=== PATIENT | female | born 1970 | race Caucasian/White ===

== ENCOUNTER 2025-08-14 20:40 | Emergency (ER) | payer OTHER, SELFPAY ==
--- OUTSIDE RECORDS SUMMARY | 2025-02-13 06:00 | XMS_ITS ---
Author Organization [facility] [place] [facility] Address [address] [place] [address] Care Team Providers Care Casing Splitter Name Role Phone Phylicia Locke Primary Care Provider Unavaila ble Provider, ASC Unavailable [phone] Encounters Encounter Location Date Provider Diagnosis [facility] [address] [place] [address] 02/13/2025 ASC Provider Plan Of Treatment No Information Progress Notes * Fiordaliza ALVAREZDOB:1970 (54 yo F)Acc No.[id number]:02/13/2025 UNLOCKED PROGRESS NOTE [facility] Surgery Patient: Fiordaliza PRESLEY :?ASC ProviderDOB:1970???Age:54 Y???Sex: FemaleDate:02/13/2025Phone:[phone]:[address], [address], [place], [place]-[address]Pcp:Phylicia Pérez In:09:52 AM EST Subjective: * Chief Complaints: * * Medical History: Objective: * Vitals: Assessment: Plan: * Treatment: * * Electronic signature of ASC Provider on 08/15/2025 at 01:22 AM ESTSign off status: PendingVisit Status:?ARR (Check-In) * Provider: A IA Provider Date: 0 02/13/2025 Generated for Printing/Faxing/eTransmitting on:?08/15/2025 01:22 AM EST
[2025-08-14 20:53] VITALS: BP 138/82; PULSE 100; TEMP 36.9; O2SAT 95; BMI 35.0
[2025-08-14 21:27] LABS: SARS-CoV-2 Ag NEGATIVE (NEGATIVE)
[2025-08-15 00:56] VITALS: BP 140/88; PULSE 87; TEMP 36.9; O2SAT 98
--- NOTE | 2025-08-15 01:00 | ED.GENADUL1 ---
HPI HPI - General Adult General Chief complaint: Fever Stated complaint: Fever, fatigue, flu-like symptoms Time Seen by Provider: 08/15/25 00:57 Source: patient Mode of arrival: walk-in Limitations: no limitations History of Present Illness HPI narrative: ill past 2-3 days with body aches, fever up to 103 yesterday . Dry cough and mild shortness of breath. No GI symptoms or rash Related Data Allergies Allergy/AdvReac Type Severity Reaction Status Date / Time No Known Drug Allergies Allergy Verified 08/14/25 21:00 Review of Systems ROS Status of ROS 10 or more systems reviewed and unremarkable except as noted in history and below PFSH PFSH Social History Little interest or pleasure in doing things: not at all Feeling down, depressed, or hopeless: not at all Exam Constitutional Vital Signs, click to edit/add: Last Vital Signs Temp 98.4 F 08/15/25 00:56 Pulse 87 08/15/25 00:56 Resp 18 08/15/25 00:56 BP 140/88 08/15/25 00:56 Pulse Ox 98 08/15/25 00:56 O2 Del Method Room Air 08/15/25 00:56 Common normals: no apparent distress, average body habitus, oriented x3, no limitations, healthy appearing, alert and well nourished [facility] Common normals: normocephalic and head/scalp atraumatic Eye Common normals: EOMs intact bilaterally and conjunctivae normal Respiratory Common normals: normal respiratory effort, no retractions, no use of accessory muscles and clear to auscultation bilaterally Cardio Common normals: regular rate, regular rhythm, S1 normal heart sound and S2 normal heart sound GI Common normals: Normal to inspection, nondistended, normoactive bowel sounds present, soft to palpation and non-tender Extremity Common normals: normal to inspection Neuro Common normals: oriented x3, CN's II-XII intact bilaterally, moves all extremities and no focal motor deficits Psych Appearance: grossly normal Course Vital Signs Vital signs: Vital Signs Temperature 98.4 F 08/14/25 20:53 Pulse Rate 100 H 08/14/25 20:53 Respiratory Rate 15 08/14/25 20:53 Blood Pressure 138/82 08/14/25 20:53 Pulse Oximetry 95 08/14/25 20:53 Oxygen Delivery Method Room Air 08/14/25 20:53 Temperature 98.4 F 08/15/25 00:56 Pulse Rate 87 08/15/25 00:56 Respiratory Rate 18 08/15/25 00:56 Blood Pressure 140/88 08/15/25 00:56 Pulse Oximetry 98 08/15/25 00:56 Oxygen Delivery Method Room Air 08/15/25 00:56 Medical Decision Making MDM Narrative Medical decision making narrative: patient presents with body aches and dry cough. Exam neg. cxray per my preliminary review unremarkable. Influenza positive and UA positive as well. Patient advised of working diagnosis of influenza and UTI. Given prescriptiom of bactrim ds and discharged in stable condition Lab Data Labs: Lab Results 08/14/25 08/15/25 08/15/25 Range/Units 21:03 01:15 01:17 WBC 3.2 L (4.0-11.0) 10^3/uL RBC 4.54 (4.20-5.40) 10^6/uL Hgb 13.3 (12.0-16.0) g/dL Hct 41.7 (36.0-48.0) % MCV 91.9 (81.0-99.0) fL MCH 29.3 (26.7-34.0) pg MCHC 31.9 (29.9-35.2) g/dL RDW 12.5 (11.0-15.0) % Plt Count 256 (150-450) 10^3/uL MPV 9.1 L (9.5-13.5) fL Neut % (Auto) 50.6 (43.0-75.0) % Lymph % (Auto) 34.6 (20.5-60.0) % [place] % (Auto) 14.2 H (1.7-12.0) % Eos % (Auto) 0.0 L (0.9-7.0) % Baso % (Auto) 0.6 (0.2-2.0) % Neut # (Auto) 1.6 (1.4-6.5) 10^3/uL Lymph # (Auto) 1.1 L (1.2-3.8) 10^3/uL [place] # (Auto) 0.5 (0.3-0.8) 10^3/uL Eos # (Auto) 0.0 (0.0-0.7) 10^3/uL Baso # (Auto) 0.0 (0.0-0.1) 10^3/uL Abs Immat Gran (auto) 0.00 (0.00-0.03) 10^3/uL Imm/Tot Granulo (auto) 0.0 (0.0-0.5) % Sodium 134 L (136-145) mmol/L Potassium 3.9 (3.5-5.1) mmol/L Chloride 99 (98-107) mmol/L Carbon Dioxide 31.5 (21.0-32.0) mmol/L Anion Gap 7.4 BUN 9.0 (7.0-18.0) mg/dL Creatinine 0.72 (0.55-1.02) mg/dL Est GFR ( Amer) >60 (>=60 mL/min/1.73m^2) Est GFR (Non-Af Amer) >60 (>=60 mL/min/1.73m^2) BUN/Creatinine Ratio 12.5 Glucose 123 H (74-106) mg/dL Calcium 9.6 (8.5-10.1) mg/dL Urine Color Yellow (YELLOW) Urine Clarity Clear (CLEAR) Urine pH 6.0 (5.0-9.0) Ur Specific Clayton >=1.030 A (1.005-1.025) Urine Protein Trace (NEG/TRACE) mg/dL Urine Glucose (UA) Negative (NEGATIVE) mg/dL Urine Ketones Trace A (NEGATIVE) mg/dL Urine Occult Blood Negative (NEGATIVE) Urine Nitrite Negative (NEGATIVE) Urine Bilirubin Negative (NEGATIVE) Urine Urobilinogen 0.2 (0.2-1.0) EU/dL Ur Leukocyte Esterase Negative (NEGATIVE) Urine RBC None seen (0-2) #/HPF Urine WBC 2-5 A (NONE SEEN) #/HPF Ur Squamous Epith Cells Rare (NONE/RARE) #/LPF Urine Crystals Seen A (None Seen) #/HPF Amorphous Sediment Rare Urine Bacteria Small A (NONE SEEN) #/HPF Urine Casts None seen (NONE SEEN) #/LPF Urine Mucus Moderate A (NONE SEEN) Ur [place] Indicated[place] [place] Type A Ag Negative Influenza Type B Ag Positive A SARS-CoV-2 Ag (CV2AG) Negative (NEGATIVE) Streptococcus Screen Negative Discharge Plan Discharge Chief Complaint: Fever Clinical Impression: Influenza, UTI (urinary tract infection) Patient Disposition: Home, Self-Care Print Language: Colombian Instructions: Urinary Tract Infection in Women (ED), Influenza (ED) Additional Instructions: drink plenty of fluids and follow up with your doctor later this week Referrals: Physician,Non-Staff, MD [Primary Care Provider] - 1 week
--- NOTE | 2025-08-15 01:02 | XR_ITS ---
[facility] [place] [id number] Patient Name: SAKINA CUENCA MRN: [id number] date: 1970 Sex: F Assigned Patient Location: ED.MAIN Current Patient Location: Accession/Order Number: [id number] Exam Date: 08/15/2025 01:15 Report Date: 08/15/2025 09:29 At the request of: ANTIONETTE MALAGON MD Procedure: XR chest 1V PORTABLE AP ERECT CHEST 1110 hours CLINICAL HISTORY: cough and flulike symptoms COMPARISON: None Evaluation is slightly limited by large body habitus. The heart is within normal limits. There is no vascular congestion. The lungs, as visualized, are clear. There is no effusion or pneumothorax. The osseous structures are intact. There are small endplate spurs. XR/XR chest 1V IMPRESSION: SLIGHTLY LIMITED STUDY, WITHOUT DEFINITE ACUTE FINDINGS . Impression dictated by: Ilda Rothman M.D. 08/15/2025 9:29 AM Dictation Location: [place] [address] Electronically authenticated by: [id number] Y Date: 08/15/2025 09:29
[2025-08-15 01:21] LABS: Hematocrit 41.7 % (36.0-48.0); Hemoglobin 13.3 g/dL (12.0-16.0); Immature Granulocytes Abs Auto 0.00 10^3/uL (0.00-0.03); Immature Granulocytes Pct Auto 0.0 % (0.0-0.5); Lymphocytes Absolute Auto 1.1 10^3/uL (1.2-3.8); Mean Corpuscular HGB Conc 31.9 g/dL (29.9-35.2); Mean Corpuscular Hemoglobin 29.3 pg (26.7-34.0); Mean Corpuscular Volume 91.9 fL (81.0-99.0); Platelet Count 256 10^3/uL (150-450); Red Blood Count 4.54 10^6/uL (4.20-5.40); White Blood Count 3.2 10^3/uL (4.0-11.0)
[2025-08-15 01:22] LABS: Glucose Urine UA NEGATIVE (NEGATIVE)
--- OUTSIDE RECORDS SUMMARY | 2025-08-15 01:22 | XMS_ITS | Clinical Summary ---
Author Organization [facility] Address [address] [place] [address] Care Team Providers Care Mechanical And Auto Body Car Checker Name Role Phone Chucky Phylicia JOSÉ LUIS Unavailable [phone] Andreas Frye DO Unavailable [phone] Jose Elias Keita MD Primary Care Provider [phone] Allergies No known active allergies Medications MedicationSigDispense QuantityRefillsLast FilledStart DateEnd DateStatus spironolactone (Aldactone) 50 MG tablet Take 50 mg by mouth Daily 1 tabletActive desogestrel-ethinyl estradiol (Apri) 0.15-30 MG-MCG tablet Take 1 tablet by mouth DailyActive Rimegepant Sulfate (Nurtec) 75 MG tablet dispersible Indications:Chronic migraine without aura without status migrainosus, not intractable,Acephalgic migraineTake 1 tablet by mouth as needed at the onset of migraine. Place on tongue and allow to dissolve. Take no more than 1 dose in 24 hours. 8 tablet 5Active amitriptyline (Elavil) 25 MG tablet Indications:Acephalgic migraineTake 1 tablet (25 mg) by mouth Daily 30 tablet 5Active Active Problems ProblemNoted DateDiagnosed ScftMwsemhpfyca52/28/2024hronic migraine without aura without status migrainosus, not krcfwzqatbu86/28/6164Ezrdknt22/28/2024 Family History Medical HistoryRelationNameCommentsCancerOtherHeart attackOtherStrokeOther RelationNameStatusCommentsOther Social History Tobacco UseTypesPacks/DayYears UsedDateSmoking Tobacco: NeverSmokeless Tobacco: Never Tobacco Cessation:Counseling Given: Not Answered Alcohol UseStandard Drinks/WeekCommentsNever0 (1 standard drink = 0.6 oz pure alcohol)caffeineCommentsUnknownSex and Gender InformationValueDate RecordedSex Assigned at JjpyzOoipgl37/23/2024 8:38 AM EDTLegal SexFemale 11/11/2022 8:26 PM EDTGender ZejvbrnyXbpcwc72/23/2024 8:38 AM EDTSexual ZlgqdimxwucMxawhhxu22/23/2024 8:38 AM EDT Last Filed Vital Signs Vital SignReadingTime TakenCommentsBlood Xigidosd570/7901/16/2025 8:14 AM EDT Ehynj817101/16/2025 8:14 AM EDTTemperature--Respiratory Nkze796001/18/2024 10:49 AM EDTOxygen Saturation--Inhaled Oxygen Concentration--Mmxull591 kg (237 lb) 01/16/2025 8:14 AM LCXTrqqbu078.7 cm (5' 8 )01/16/2025 8:14 AM EDTBody Mass Index36.04001/16/2025 8:14 AM EDT Plan of Treatment Not on file Insurance * Guarantor: Fiordaliza AlvarezAccount TypeRelation to PatientDate of BirthPhone Billing AddressPersonal/LiiwwuBosz02/14/1971 [phone] [address] Care Teams Team MemberRelationshipSpecialtyStart DateEnd Date Jose Elias Keita MD [address] [place] [address] PCP - GeneralInternal Vzfuavny70/11/24 Phylicia Locke CRNP [address] [facility] [place] [address] Referring PhysicianNurse Practitioner12/28/23 Andreas Frye DO [address] [place] [address] Referring XneazycyjYplflvmkp17/8/24
--- OUTSIDE RECORDS SUMMARY | 2025-08-15 01:22 | XMS_ITS | Patient Health Record ---
Author Organization [facility] [place] Address [address] [place] [address] Care Team Providers Care Utilization Reviewer Name Role Phone Phylicia Locke Primary Care Provider Bunny [place] Unavailable [phone] Provider, LIZ Unavailable [phone] Allergies No Known Allergies Results Component Value Reference Range Notes Colonoscopy* Reviewed date:02/15/2025 05:50:31 AM Interpretation: Performing Lab: Notes/Report: Reason For Referral No Information Medications Medication SIG (Take, Route, Frequency, Duration) Notes Start Date End Date Status Amitriptyline HCl 25 MG 1 tablet at bedtime Oral ly Once a day ActiveNurtec 75 MG1 tablet on the tongue and allow to dissolve OrallyActive Qpdfuyajxzhflr83/01/1900Not-TakingApri 0.15 mg-0.03 usexktot29/01/1900Not-Taking Suprep Bowel Prep Kit 17.5-3.13-1.6 GM/177MLml Orally once; Duration: 1 days 5Active Social History Tobacco Use: Social History Observation Description Date Details (start date - stop date) Never Smoker NA - NA Tobacco Use/Smoking Question Answer Notes Patient is a nonsmoker Vital Signs Height 65 in 01/18/2025 Encounters Encounter Location Date Provider Diagnosis [facility] [address] [place] [address] 02/13/2025 ASC Provider [facility] [id number] [place] [address]/ [facility]aisGeneral Surgery [facility] [address] [place] [address]/Sacesar BaisGeneral Surgery H[facility]ctor [facility]er [facility] [id number] [place] [address]/ Bunny Houser Plan Of Treatment No Information Insurance Providers Payer Name Payer Address Payer Phone Subscriber Number Group Number Insured Name Patient Relationship to Insured Coverage Start Date Coverage End Date MMO [employer] PPO [address] [address] [place] [address] [id number] Pola Alvarez Spouse - patient is the spouse of the insured 3 Medical (General) History Medical History History ICD Code migraines Surgical History Surgery Date(Month/Year) none
[2025-08-15 01:29] LABS: Cast Seen? NONE SEEN #/LPF (NONE SEEN); Crystals Seen? Seen #/HPF (None Seen); Urine Culture Indicated YES-FRMC
[2025-08-15 01:30] LABS: Anion Gap 7.4; Blood Urea Nitrogen 9.0 mg/dL (7.0-18.0); Calcium 9.6 mg/dL (8.5-10.1); Carbon Dioxide 31.5 mmol/L (21.0-32.0); Chloride 99 mmol/L (98-107); Estimated GFR (African America >60 (>=60 mL/min/1.73m^2); Estimated GFR (Non-African Ame >60 (>=60 mL/min/1.73m^2); Glucose 123 mg/dL (74-106); Potassium 3.9 mmol/L (3.5-5.1); Sodium 134 mmol/L (136-145)
[2025-08-15] MEDS: SULFAMETHOXAZOLE/TRIMETHOPRIM 800-160 MG TABLET 1 TAB PO (02:38)
== END 2025-08-15 02:48 | disposition home or self-care (01) ==
PROVIDERS: Emergency Provider Internal Medicine
DX: J10.1 Influenza due to other identified influenza virus with other respiratory manifestations (principal); N39.0 Urinary tract infection, site not specified
CPT/HCPCS: 36415; 71045; 80048; 81001; 85025; 87070; 87086; 87804; 87811; 87880; 99283